=== PATIENT | male | born 1975 | race Caucasian/White ===

== ENCOUNTER 2020-02-28 06:56 | Day surgery (SDC) | payer MEDICAID ==
[~2020-02-28 06:56] MED LIST: Bupivacaine 0.5% 30 ML SDV ONE
[2020-02-28] MEDS ORDERED: fentaNYL 250 MCG/5 ML SDV ONE ×2 (07:27→10:03)
[2020-02-28] MEDS ORDERED: Midazolam 1 MG/ML 2 ML SDV ONE (07:27)
[2020-02-28] MEDS ORDERED: Ondansetron 4 MG/2 ML SDV ONE (07:28)
[2020-02-28] MEDS ORDERED: Rocuronium 50 MG/5 ML Vial ONE ×2 (07:28→10:48)
[2020-02-28] MEDS ORDERED: Propofol 200 MG/20 ML SDV ONE (07:28)
[2020-02-28] MEDS ORDERED: Dexamethasone 4 MG/ML SDV ONE (07:28)
[2020-02-28] MEDS ORDERED: Succinylcholine 200 MG/10 ML MDV ONE (07:28)
[2020-02-28] MEDS ORDERED: Nozin Nasal Sanitizer NASBOTH ONE (07:45)
[2020-02-28] MEDS ORDERED: ceFAZolin 2 GM in Premix Bag 1 BAG IV ONE (07:45)
[2020-02-28] MEDS ORDERED: Lactated Ringers 1,000 ML IV SCH (07:45)
[2020-02-28] MEDS ORDERED: Glycopyrrolate 0.2 MG/ML 5 ML MDV ONE (09:35)
[2020-02-28] MEDS ORDERED: Neostigmine Methylsulfate 1 MG/ML 5 ML Syringe ONE (09:35)
[2020-02-28] MEDS ORDERED: Lactated Ringers 1,000 ML ONE (11:03)
[2020-02-28] MEDS ORDERED: Labetalol 20 MG/4 ML Syringe ONE (11:10)
[2020-02-28] MEDS ORDERED: SUMAtriptan 50 MG Tab PO PRN (12:07)
[2020-02-28] MEDS ORDERED: hydrOXYzine HCl 10 MG Tab PO PRN (12:07)
[2020-02-28] MEDS ORDERED: Diazepam 5 MG Tab PO PRN (12:07)
[2020-02-28] MEDS ORDERED: Acetaminophen/HYDROcodone 325-10 MG Tab PO PRN (12:09)
[2020-02-28] MEDS ORDERED: Ondansetron 4 MG/2 ML SDV IVPUSH PRN (12:11)
[2020-02-28] MEDS: HYDROmorphone 2 MG Tab PO PRN ×2 (12:49→16:18)
[2020-02-28] MEDS: busPIRone 10 MG Tab PO SCH ×2 (13:18→20:04)
[2020-02-28] MEDS: Gabapentin 400 MG Cap PO SCH ×2 (13:18→20:04)
[2020-02-28] MEDS: Sodium Chloride 0.9% 1,000 ML IV SCH ×2 (13:18→21:12)
[2020-02-28] MEDS: Morphine 2 MG/ML Syringe IVPUSH PRN ×4 (13:23→22:23)
[2020-02-28] MEDS ORDERED: Morphine 2 MG/ML Syringe IVPUSH ONE (13:43)
[2020-02-28] MEDS: Ketorolac 30 MG/ML SDV IVPUSH SCH (15:27)
[2020-02-28] MEDS: Nicotine 14 MG/24 Hr Patch TRDERM SCH (16:48)
[2020-02-28] MEDS ORDERED: DULoxetine 30 MG Cap PO SCH (21:00)
[2020-02-28] MEDS ORDERED: tiZANidine 4 MG Tab PO SCH (21:00)
[2020-02-28] MEDS ORDERED: traZODone 50 MG Tab PO SCH (21:00)
[2020-02-28] MEDS ORDERED: Amitriptyline 10 MG Tab PO SCH (21:00)
[2020-02-29] MEDS: HYDROmorphone 2 MG Tab PO PRN ×3 (00:03→07:55)
[2020-02-29] MEDS: Ketorolac 30 MG/ML SDV IVPUSH SCH ×2 (00:03→07:55)
[2020-02-29] MEDS: Morphine 2 MG/ML Syringe IVPUSH PRN ×2 (00:07→02:00)
[2020-02-29] MEDS: Sodium Chloride 0.9% 1,000 ML IV SCH (05:15)
[2020-02-29] MEDS ORDERED: DULoxetine 30 MG Cap PO SCH (07:30)
[2020-02-29] MEDS: Gabapentin 400 MG Cap PO SCH (08:01)
[2020-02-29] MEDS: busPIRone 10 MG Tab PO SCH (08:01)
[2020-02-29] MEDS: Nicotine 14 MG/24 Hr Patch TRDERM SCH (08:26)
[2020-02-29] MEDS ORDERED: amLODIPine 5 MG Tab PO SCH (09:00)
--- NOTE | 2020-03-07 17:45 | OR ---
DATE OF PROCEDURE: 02/28/2020 SURGEON: Jesus Freeman MD PREOPERATIVE DIAGNOSES: 1. Patellar malalignment, right knee. 2. Recurrent patellar dislocation. POSTOPERATIVE DIAGNOSES: 1. Patellar malalignment, right knee. 2. Recurrent patellar dislocation. 3. Chondromalacia of patella, grade 3; and trochlear groove, grade 4. PROCEDURES: 1. Arthroscopy of right knee with chondroplasty of patellofemoral joint. 2. Haylee tibial tubercle transfer. 3. Medial patellar femoral ligament reconstruction. ANESTHESIA: General. INDICATIONS: Phoenix is a 44-year-old gentleman with history of multiple dislocations of his right knee over the past several years. This is quite unstable and subluxes routinely, and he is able to reduce his patella when it does completely dislocate. He had injury to his knee with a traumatic dislocation several years ago in the service and has had persistent difficulty since then. He also has significantly increased Q-angle contributing to the instability. He now presents for arthroscopy for evaluation of the articular cartilage, tibial tubercle transfer , and medial patellofemoral ligament reconstruction. Risks, benefits, and potential complications of the procedure were discussed. DESCRIPTION OF PROCEDURE: After adequate anesthesia was obtained, the patient was placed supine with a tourniquet about the right upper thigh. Right leg was prepped and draped in a sterile fashion, leg was exsanguinated, and tourniquet inflated to 300 mmHg pressure. Standard anterior, inferior, medial, and lateral portals were established, and the scope was introduced. Patellofemoral joint was inspected, and this revealed significant lateral displacement with grade 3 changes of the articular cartilage on the patellar dome and grade 4 changes in the trochlea. A shaver was used to perform a chondroplasty removing any loose articular fragments and bevelling the periphery of the defects. ACL was intact. Medial and lateral meniscus were normal as was the articular cartilage in the medial and lateral compartments. The scope was then withdrawn, and the knee was drained. A longitudinal incision was made from the tibial tubercle distally and carried down through the subcutaneous tissues. Incision was made in the anterior fascia, and the anterior compartment muscles were elevated off the tibia. Drill was then used to plan the angle of the osteotomy, which was approximately a 45-degree angle, taking care to not violate the posterior cortex of the tibia. Additional drill holes were then made distally in the same plane, moving slightly more anterior towards the distal end. Osteotome was then used to connect the drill holes and complete the osteotomy, leaving the distal cortex in continuity. Soft tissues adjacent to the patellar tendon were freed of their attachments allowing the tibial tubercle to be shifted medially. Osteotome was used to lever the tibial tubercle medially for a distance of approximately 1 cm, resulting in medial translation and anterior translation. Guidepins for cannulated screws were then placed with the tibial tubercle in this position. These were then measured and drilled for cannulated headless screws. Screws were placed over the guidepins. Excellent purchase and compression were obtained with each screw and final position was confirmed using fluoroscopy. A small incision was made along the medial border of the patella and carried down through the subcutaneous tissues. Anterior fascia was elevated off the medial border of the patella and the plane just deep to this, but superficial to the joint capsule was created. Medial border of the patella was exposed, and the central portion was lightly decorticated with a rongeur. A separate incision was then made over the medial epicondyle and carried down through the subcutaneous tissues. Fluoroscopy was set up for a lateral of the knee and a guidepin was then placed using fluoroscopic assistance at the origin of the medial patellofemoral ligament and directed anterior and lateral. This was brought up through the skin at the thigh. A tunnel was then made between the layers of the joint capsule, and the knee fascia from the patellar incision to the medial epicondylar incision. Separate guidepin was then placed in the central portion of the patella and drilled from medial to lateral and out the skin laterally. A semi-tendinosis allograft was thawed and a whipstitch was placed in each end of the tendon. This measured just under 4 mm thick. The smallest size interference screw available was a 6 mm. Therefore, a 6-mm reamer was used in the medial patella and reamed for a depth of approximately 12 to 13 mm. The stitches from one end of the graft were then placed through the end of the guidepin, and this was used to deliver the graft into the socket. A 6-mm Georgie interference screw was then advanced into the tunnel with good interference fit. A Janeth clamp was passed through the tunnel between the medial epicondylar incision and the patellar incision, and used to pass the graft through the soft tissues. Sutures were then placed into the eyelet in the guidepin and the guidepin was used to deliver the graft into a pre-drilled 6 mm tunnel in the femur. With the knee bent at approximately 30 degrees and the patella centered, the graft was cinched into the tunnel without excessive force. A guidepin was placed into the tunnel and a second Georgie interference screw was placed and sunk flush with the epicondyle. Again, good interference fit was obtained. The guidepins were removed. Knee was taken through range of motion and the patella centered well within the trochlea and had good resistance to displacement laterally. Wounds were then thoroughly irrigated. The incision over the patella was then closed with 0 Vicryl, incorporating the tendon graft into the closure. Skin was closed with 2-0 Vicryl and a running 3- 0 Monocryl. Medial incision was closed with 2-0 Vicryl in the subcu and a running 3-0 Monocryl. The anterior muscle fascia was closed with 0 Vicryl in a running fashion. Skin was then closed with 2-0 Vicryl and a 3-0 Monocryl. Steri-Strips were applied. Light compressive dressing was placed over Xeroform gauze. The knee was then secured in a hinged knee brace in extension. The patient tolerated the procedure very well. There were no complications. He was taken from the operating room in a stable condition. Jesus Freeman MD /[id number] BILL
== END 2020-02-29 09:30 | disposition home or self-care (01) ==
LOC: JP.SDS 06:56 → JP.ICU 12:00 → JP.SDS 02-29 09:30
PROVIDERS: ATTEND Specialist
DX: M22.01 Recurrent dislocation of patella, right knee (principal); M22.8X9 Other disorders of patella, unspecified knee; M22.41 Chondromalacia patellae, right knee; I10 Essential (primary) hypertension; E66.9 Obesity, unspecified; Z88.5 Allergy status to narcotic agent; Z68.37 Body mass index [BMI] 37.0-37.9, adult
CPT/HCPCS: 27418; 27427; 29877; 36415; 76000; 80053; 82962; 85027; A9270; J0330; J0690; J1100; J1885; J2250; J2270; J2405; J2704; J2710; J3010; J3490; J7030; J7120

== ENCOUNTER 2020-09-18 05:58 | Day surgery (SDC) | payer MEDICAID ==
[2020-09-18] MEDS ORDERED: Lactated Ringers 1,000 ML IV SCH (06:30)
[2020-09-18] MEDS: Nozin Nasal Sanitizer NASBOTH SCH ×3 (06:44→20:15)
[2020-09-18] MEDS ORDERED: Povidone-Iodine 10% Soln 118.25 ML Bottle ONE (06:45)
[2020-09-18] MEDS ORDERED: Bupivacaine 0.5% 50 ML MDV ONE (06:45)
[2020-09-18] MEDS ORDERED: Midazolam 1 MG/ML 2 ML SDV ONE ×3 (07:26→08:07)
[2020-09-18] MEDS ORDERED: Propofol 200 MG/20 ML SDV ONE ×3 (07:26→08:25)
[2020-09-18] MEDS ORDERED: fentaNYL 100 MCG/2 ML SDV ONE (07:26)
[2020-09-18] MEDS ORDERED: ceFAZolin 2 GM in Premix Bag 1 BAG IV ONE (07:30)
[2020-09-18] MEDS ORDERED: ceFAZolin 2 GM in Sodium Chloride 0.9% 100 ML IV ONE (07:30)
[2020-09-18] MEDS ORDERED: Magnesium Hydroxide 400 MG/5 ML Susp 30 ML Cup PO PRN (09:14)
[2020-09-18] MEDS ORDERED: Ondansetron 4 MG/2 ML SDV IVPUSH PRN (09:14)
[2020-09-18] MEDS ORDERED: Sodium Chloride 0.9% 1,000 ML IV SCH (09:15)
[2020-09-18] MEDS ORDERED: ceFAZolin 1 GM in Sodium Chloride 0.9% 50 ML IV SCH (09:15)
[2020-09-18] MEDS ORDERED: SUMAtriptan 50 MG Tab PO PRN (09:21)
[2020-09-18] MEDS ORDERED: Diazepam 5 MG Tab PO PRN (09:21)
[2020-09-18] MEDS ORDERED: HYDROmorphone 2 MG Tab PO PRN (09:23)
--- NOTE | 2020-09-18 10:16 | CR ---
Knee 1V or 2V Rt CLINICAL HISTORY: Postop FINDINGS: Patient has had the partial arthroplasty with at the patellofemoral joint. There are surgical screws in the proximal tibia similar to a July study. There is intra-articular and subcutaneous air. IMPRESSION: Status post patellofemoral arthroplasty
[2020-09-18] MEDS: Morphine 2 MG/ML SYRINGE IVPUSH PRN ×4 (10:52→18:18)
[2020-09-18] MEDS: Ketorolac 30 MG/ML SDV IVPUSH SCH ×2 (11:42→19:12)
[2020-09-18] MEDS: Acetaminophen/HYDROcodone 325-5 MG Tab PO PRN ×2 (11:47→23:21)
[2020-09-18] MEDS ORDERED: Non-Formulary Medication 1 Each (Gabapentin [Neurontin] 1,200 MG) PO SCH (14:00)
[2020-09-18] MEDS: Gabapentin 400 MG Cap PO SCH ×2 (14:07→20:16)
[2020-09-18] MEDS ORDERED: hydrOXYzine HCL 100 MG/2 ML SDV IM PRN (14:35)
[2020-09-18] MEDS: HYDROmorphone 2 MG Tab PO PRN ×2 (15:49→20:17)
[2020-09-18] MEDS: ceFAZolin 1 GM in Premix Bag 1 BAG IV SCH ×2 (15:52→23:21)
[2020-09-18] MEDS: hydrOXYzine HCl 10 MG Tab PO PRN (18:19)
[2020-09-18] MEDS: Docusate Sodium 100 MG Cap PO SCH (20:15)
[2020-09-18] MEDS ORDERED: Nozin Nasal Sanitizer NASBOTH SCH (21:00)
[2020-09-18] MEDS ORDERED: DULoxetine 30 MG Cap PO SCH (21:00)
[2020-09-18] MEDS ORDERED: traZODone 50 MG Tab PO SCH (21:00)
[2020-09-19] MEDS: Ketorolac 30 MG/ML SDV IVPUSH SCH (02:17)
[2020-09-19] MEDS: hydrOXYzine HCl 10 MG Tab PO PRN (03:56)
[2020-09-19] MEDS: HYDROmorphone 2 MG Tab PO PRN ×2 (03:56→07:58)
[2020-09-19] MEDS ORDERED: DULoxetine 30 MG Cap PO SCH (07:30)
[2020-09-19] MEDS ORDERED: Non-Formulary Medication 1 Each (Duloxetine [Cymbalta] 60 MG) PO SCH (07:30)
[2020-09-19] MEDS: ceFAZolin 1 GM in Premix Bag 1 BAG IV SCH (07:34)
[2020-09-19] MEDS: Nozin Nasal Sanitizer NASBOTH SCH (08:00)
[2020-09-19] MEDS: Docusate Sodium 100 MG Cap PO SCH (08:00)
[2020-09-19] MEDS: Gabapentin 400 MG Cap PO SCH (08:00)
[2020-09-19] MEDS ORDERED: amLODIPine 5 MG Tab PO SCH (09:00)
--- NOTE | 2020-09-19 17:04 | PCM.DCSUM1 ---
Discharge Summary - Hospital Course HPI Initial Comments: 45 year old male with history of chronic recurrent right patella dislocations treated with tibial tubercle transfer and MPFL reconstruction previously now presents for PFJ arthroplasty to treat a known full thickness cartilage defect in the trochlear groove. Diagnosis: Stroke: No Modified [place] Scale: No Symptoms at All Modified Anoop Scale Score: 0 - Discharge Data Discharge Date: 09/19/20 Discharge Disposition: Home, Self-Care 01 Condition: Good - Referral to Home Health Date of Face to Face Encounter: 09/19/20 Primary Care Physician: Jesus Rollins Sr, - Discharge Diagnosis/Problem(s) (1) Status post right partial knee replacement SNOMED Code(s): 649203987, [id number], [id number], [id number] ICD Code: Z96.651 - PRESENCE OF RIGHT ARTIFICIAL KNEE JOINT Status: Acute Problem Details: PFJ - Patient Summary/Data Operative Procedure(s) Performed: right patellofemoral arthroplasty Complications: none Consults: Consultations 09/18/20 09:14 Consult to Case Management/Distribution Analyst [CONS] Routine Comment: Physician Instructions: Service(s) to be Consulted: Case Management Reason for Consult: Plan for Discharge PT Evaluation and Treatment [CONS] Routine Please Evaluate and Treat. PT Reason for Consult: Post op Ortho Surgery Special Instructions: ambulation This query below is only for informational purposes and is not editable. PT Evaluation and Treatment [CONS] Routine Please Evaluate and Treat. PT Reason for Consult: Post op Ortho Surgery Knee Pending Discharge: Yes, 1- 2 days Special Instructions: Schedule first outpatient PT appointment in 3-5 day post discharge. This query below is only for informational purposes and is not editable. Hospital Course: Tolerated procedure without difficulty. Had some problems with post op pain control but was able to tolerate being up in the wells. Pain medications were adjusted and he did fairly well overnight. Was independent with ambulation and transfers by the morning of POD #1 and wanted to go home. Dressing was changed, moderate swelling was present but incision was clean and dry. Discharged to home on Dilaudid and ASA twice daily. Follow up in two weeks. - Patient Instructions Diet: Usual Diet as Tolerated Activity: Apply Ice, As Tolerated, Full Weight Bearing Driving: Do Not Drive Showering/Bathing: May Shower Wound/Incision Care: Keep Operative Site/Wound Site Clean and Dry Notify Provider of: Fever, Increased Pain, Swelling and Redness, Drainage, Nausea and/or Vomiting - Discharge Plan *PRESCRIPTION DRUG MONITORING PROGRAM REVIEWED*: No *COPY OF PRESCRIPTION DRUG MONITORING REPORT IN PATIENT EUGENE: No Prescriptions/Med Rec: HYDROmorphone [Dilaudid] 4 - 6 mg PO Q6HR PRN #60 tab PRN Reason: Pain Home Medications: Home Meds DULoxetine [Cymbalta] 60 mg PO ACBREAKFAST 01/22/20 [History] Meloxicam 15 mg PO DAILY 01/22/20 [History] traZODone HCl [Trazodone HCl] 150 mg PO BEDTIME 01/22/20 [History] amLODIPine [Norvasc] 5 mg PO DAILY 01/23/20 [History] diazePAM [Valium] 5 mg PO DAILY PRN 01/23/20 [History] Gabapentin [Neurontin] 1,200 mg PO TID 01/30/20 [History] busPIRone [Buspar] 15 mg PO QID 01/30/20 [History] hydrOXYzine HCL [hydrOXYzine] 10 mg PO TID PRN 01/30/20 [History] tiZANidine HCl [Tizanidine HCl] 4 mg PO BEDTIME 01/30/20 [History] Cholecalciferol (Vitamin D3) [Vitamin D3] 25 mcg PO DAILY 02/28/20 [History] DULoxetine [Cymbalta] 30 mg PO BEDTIME 02/28/20 [History] SUMAtriptan [Imitrex] 50 mg PO ASDIRECTED PRN 02/28/20 [History] HYDROmorphone [Dilaudid] 4 - 6 mg PO Q6HR PRN #60 tab 09/19/20 [Rx] Oxygen Therapy Mode: Room Air Patient Handouts: Total Knee Replacement, Care After, [id number] Referrals: Jesus Honeycutt PT [Physical Therapist] - 09/24/20 3:00 pm Jesus Freeman MD [Physician] - 10/03/20 10:30 am (Please arrive 15 minutes early to register.) - Discharge Summary/Plan Comment DC Time >30 min.: No - General Info Functional Status: Reports: Pain Controlled, Tolerating Diet, Ambulating, Urinating - Review of Systems General: Reports: No Symptoms HEENT: Reports: No Symptoms Pulmonary: Reports: No Symptoms Cardiovascular: Reports: No Symptoms Gastrointestinal: Reports: No Symptoms Genitourinary: Reports: No Symptoms Musculoskeletal: Reports: Leg Pain Skin: Reports: No Symptoms Neurological: Reports: No Symptoms Psychiatric: Reports: No Symptoms - Patient Data Vitals - Most Recent: Last Vital Signs Temp 37.0 C 09/19/20 07:11 Pulse 70 09/19/20 07:11 Resp 16 09/19/20 07:11 BP 125/79 09/19/20 08:00 Pulse Ox 95 09/19/20 07:11 Weight - Most Recent: 120.557 kg I&O - Last 24 hours: Intake & Output 09/19/20 09/19/20 09/19/20 06:59 14:59 22:59 Intake Total 450 Output Total 1000 Balance -1000 450 Med Orders - Current: Current Medications Discontinued Medications Hydrocodone Bitart/Acetaminophen ([place] 325-5 Mg) 2 tab PO Q4H PRN PRN Reason: Pain Last Admin: 09/18/20 23:21 Dose: 2 tab Documented by: Amlodipine Besylate (Norvasc) 5 mg PO DAILY [facility] Last Admin: 09/19/20 08:00 Dose: 5 mg Documented by: Bandage/Support Products ( Nasal Teacher Tutor) 1 applic NASBOTH BID [facility] Last Admin: 09/19/20 08:00 Dose: 2 swab Documented by: Bupivacaine HCl (Marcaine 0.5%) Confirm Administered Dose 50 ml .ROUTE .STK-MED ONE Stop: 09/18/20 06:46 Diazepam (Valium.) 5 mg PO DAILY PRN PRN Reason: Anxiety Docusate Sodium (Colace) 100 mg PO BID [facility] Last Admin: 09/19/20 08:00 Dose: 100 mg Documented by: Duloxetine HCl (Cymbalta) 60 mg PO ACBREAKFAST [facility] Last Admin: 09/19/20 07:40 Dose: 60 mg Documented by: Duloxetine HCl (Cymbalta) 30 mg PO BEDTIME [facility] Last Admin: 09/18/20 20:16 Dose: 30 mg Documented by: Fentanyl (Sublimaze) Confirm Administered Dose 100 mcg .ROUTE .STK-MED ONE Stop: 09/18/20 07:27 Gabapentin (Neurontin) 1,200 mg PO TID [facility] Last Admin: 09/19/20 08:00 Dose: 1,200 mg Documented by: Hydromorphone HCl (Dilaudid) 2 mg PO Q4H PRN PRN Reason: Pain (severe 7-10) Last Admin: 09/18/20 10:54 Dose: 2 mg Documented by: Hydromorphone HCl (Dilaudid) 4 - 6 mg PO Q4H PRN PRN Reason: Pain (moderate 4-6) Last Admin: 09/19/20 07:58 Dose: 6 mg Documented by: Hydroxyzine HCl (Atarax) 10 mg PO TID PRN PRN Reason: Other Last Admin: 09/19/20 03:56 Dose: 10 mg Documented by: Hydroxyzine HCl (Vistaril) 100 mg IM Q6H PRN PRN Reason: Anxiety Last Admin: 09/19/20 07:33 Dose: 100 mg Documented by: Lactated Ringer's (Ringers, Lactated) 1,000 mls @ 75 mls/hr IV ASDIRECTED [facility] Last Admin: 09/18/20 06:45 Dose: 75 mls/hr Documented by: Cefazolin Sodium 2 gm/ Sodium (Chloride) 100 mls @ 200 mls/hr IV ONETIME ONE Stop: 09/18/20 07:59 Last Admin: 09/18/20 07:25 Dose: 200 mls/hr Documented by: Sodium Chloride (Normal Saline) 1,000 mls @ 125 mls/hr IV ASDIRECTED [facility] Last Admin: 09/18/20 14:21 Dose: 125 mls/hr Documented by: Cefazolin Sodium/Dextrose 1 gm (/ Premix) 50 mls @ 200 mls/hr IV Q8H [facility] Stop: 09/19/20 08:14 Last Admin: 09/19/20 07:34 Dose: 200 mls/hr Documented by: Ketorolac Tromethamine (Toradol) 30 mg IVPUSH Q8H [facility] Stop: 09/19/20 11:01 Last Admin: 09/19/20 02:17 Dose: 30 mg Documented by: Magnesium Hydroxide (Milk Of Magnesia) 30 ml PO BID PRN PRN Reason: Constipation Midazolam HCl (Versed 1 Mg/Ml) Confirm Administered Dose 2 mg .ROUTE .STK-MED ONE Stop: 09/18/20 07:27 Midazolam HCl (Versed 1 Mg/Ml) Confirm Administered Dose 2 mg .ROUTE .STK-MED ONE Stop: 09/18/20 07:44 Midazolam HCl (Versed 1 Mg/Ml) Confirm Administered Dose 2 mg .ROUTE .STK-MED ONE Stop: 09/18/20 08:08 Morphine Sulfate (Morphine) 2 mg IVPUSH Q1H PRN PRN Reason: Breakthrough Pain Last Admin: 09/18/20 18:18 Dose: 2 mg Documented by: Ondansetron HCl (Zofran) 4 mg IVPUSH Q6H PRN PRN Reason: Nausea/Vomiting Povidone Iodine (Betadine 10% Soln) Confirm Administered Dose 1 ml .ROUTE .STK- MED ONE Stop: 09/18/20 06:46 Last Admin: 09/18/20 08:55 Dose: 30 ml Documented by: Propofol (Diprivan 20 Ml) Confirm Administered Dose 200 mg .ROUTE .STK-MED ONE Stop: 09/18/20 07:27 Propofol (Diprivan 20 Ml) Confirm Administered Dose 200 mg .ROUTE .STK-MED ONE Stop: 09/18/20 08:03 Propofol (Diprivan 20 Ml) Confirm Administered Dose 200 mg .ROUTE .STK-MED ONE Stop: 09/18/20 08:26 Sumatriptan Succinate (Imitrex) 50 mg PO ASDIRECTED PRN PRN Reason: migraines Trazodone HCl (Trazodone) 150 mg PO BEDTIME [facility] Last Admin: 09/18/20 20:16 Dose: 150 mg Documented by: - Exam General: Reports: Alert, Oriented HEENT: Reports: Pupils Equal, Pupils Reactive, EOMI, Mucous Membr. Moist/[place] Neck: Reports: Supple Lungs: Reports: Clear to Auscultation, Normal Respiratory Effort Cardiovascular: Reports: Regular Rate, Regular Rhythm GI/Abdominal Exam: Normal Bowel Sounds, Soft, Non-Tender, No Distention (Male) Exam: Deferred Rectal (Males) Exam: Deferred Back Exam: Reports: Normal Inspection Extremities: Joint Swelling, Limited Range of Motion Skin: Reports: Warm, Dry Wound/Incisions: Reports: Dressing Dry and Intact, No Drainage Neurological: Reports: No New Focal Deficit Psy/Mental Status: Reports: Alert, Normal Affect, Normal Mood
--- NOTE | 2020-09-30 14:51 | OR ---
DATE OF PROCEDURE: 09/18/2020 SURGEON: Jesus Freeman MD PREOPERATIVE DIAGNOSIS: Articular cartilage defect, trochlear groove, chondromalacia of patella, right knee. POSTOPERATIVE DIAGNOSIS: Articular cartilage defect, trochlear groove, grade 4; chondromalacia of patella, grade 2; right knee. PROCEDURE: Right patellofemoral arthroplasty using [place] PFJ components with a size 4 trochlea and 35 mm patella. CELL LINER: CAMILA Davey. ANESTHESIA: Spinal with sedation. INDICATIONS: Phoenix is a 45-year-old male with a history of multiple recurrent patellar dislocations. He underwent arthroscopy of the knee with chondroplasty of a large trochlear defect along with a medial patellofemoral ligament reconstruction and tibial tubercle osteotomy. This has stabilized his patella with no recurring instability. However, he continues to have difficulty secondary to the full-thickness trochlear defect. He now presents for a patellofemoral arthroplasty. Risks, benefits, and potential complications were discussed. DESCRIPTION OF PROCEDURE: After adequate anesthesia was obtained, the patient was placed supine with a tourniquet about the right upper thigh. Right leg was prepped and draped in a sterile fashion. Previous incision was utilized and extended proximally above the patella, carried down through the subcutaneous tissues. Medial parapatellar arthrotomy was performed, taking care to preserve the inner meniscal ligament and anterior horn of the medial meniscus and attachments. Examination of the patellofemoral joint revealed full- thickness cartilage loss in the central portion of the trochlea. Patella showed grade 2 changes primarily. It should be noted that while performing the medial parapatellar arthrotomy, the previous patellofemoral ligament reconstruction was identified and dissected out at its attachment to the patella. This was then transected in a stepwise fashion. Major weightbearing surfaces of medial and lateral femoral condyles were intact. With the knee flexed, a small drill was placed down the femoral canal. Intramedullary guide was placed and anterior femoral cut was then made. Femur was sized to a #4 component. The first cutting jig was secured and a router was then used to remove remaining cartilage and subchondral bone. This jig was removed. A second guide was placed and peg holes were drilled along with the slotted hole at the inferior aspect of the trochlea. Trial implant was then placed. Posterior portion of the patella was resected with an oscillating saw. This was sized to a 35 mm. Peg holes were drilled and a trial implant was placed. Knee was taken through range of motion. This showed excellent tracking and no lateral release or modification of the soft tissues was needed. Trials were removed and the knee was thoroughly irrigated with pulse lavage. Bone surfaces were dried. The implant was cemented in place and pressure held as the cement cured. Excess cement was removed. Knee was again taken through range of motion and showed good stability. Knee was thoroughly irrigated once again followed by a dilute Betadine irrigation and a final saline irrigation. Medial parapatellar arthrotomy was then closed incorporating repair of the medial patellofemoral ligament graft. After this was performed, the knee was again taken through range of motion. Patella was stressed laterally with no evidence of subluxation or malalignment. Skin was closed with 2-0 Vicryl and a running 3-0 Monocryl. Steri-Strips were applied. Light compressive bandage was then placed. The patient tolerated the procedure very well. There were no complications. He was taken from the operating room in stable condition. Jesus Freeman MD /[id number]
== END 2020-09-19 10:35 | disposition home or self-care (01) ==
LOC: JP.SDS 05:58 → JP.MS 09:14 → JP.SDS 09-19 10:35
PROVIDERS: ATTEND Specialist
DX: M22.41 Chondromalacia patellae, right knee (principal); M24.19 Other articular cartilage disorders, other specified site; I10 Essential (primary) hypertension; E11.9 Type 2 diabetes mellitus without complications; Z88.5 Allergy status to narcotic agent
CPT/HCPCS: 27442; 36415; 73560; 80053; 85027; 97110; 97162; A9270; C1713; C1776; J0690; J1885; J2250; J2270; J2704; J3010; J3410; J7030; J7120; J3490